=== PATIENT | female | born 1955 | race Caucasian/White ===

== ENCOUNTER 2017-02-01 12:00 | Emergency (ER) | payer SELFPAY ==
--- OUTSIDE RECORDS SUMMARY | 2017-02-01 13:14 | XMS REPORT | Continuity of Care Document ---
:1955 Author Organization [facility] ([facility]) Address [address] [place] [address] Phone [phone] Care Team Providers Name Role Phone Unavailable Primary Care Provider Unavailable Source Comments This disclosure is being made pursuant to the Care Everywhere program, applicable federal and state laws, and may not contain all informaitonavailable regarding this patient.[facility] ([facility]) Active Allergies and Adverse Reactions Not on File Current Medications Not on file Active Problems Not on file Social History Tobacco Use Types Packs/Day Years Used Date Never Assessed Plan of Care Health Maintenance Due Date Last Done Comments HCV Screening 1955 Hepatitis B Vaccine (1 of 3 - Primary Series) 1955 Tdap Vaccine 1964 Lipid Disorder Screening 1971 Td Vaccine 1971 Mammogram 1993 Cervical Cancer Screening 07/11/2001 07/11/1998 Colonoscopy 2003 Zoster Vaccine 2013 Influenza Vaccine: Seasonal (#1) 05/21/2016 Results from Last 3 Months Not on file
--- NOTE | 2017-02-01 13:27 | ERNOTE ---
Date of Service: 02/01/17 Time Seen by Provider: 02/01/17 13:03 Stated Complaint: SINUS INFECTIONS Presenting Symptoms:: other - URI Source: patient, RN notes reviewed Exam Limitations: no limitations Immunizations: IMMUNIZATION HX Immunizations Up to Date Yes History of Influenza Vaccine Yes Hx Pneumococcal Vaccination Yes Allergies/Adverse Reactions: Allergies No Known Allergies Allergy (Verified 08/20/16 02:42) Home Medications: HOME MEDICATIONS Amlodipine Besylate [Norvasc] 5 mg PO DAILY 09/12/13 [Last Taken Unknown] Omeprazole [Prilosec] 20 mg PO DAILY 09/12/13 [Last Taken Unknown] Amoxicillin 875 mg PO BID #20 tablet 02/01/17 [Last Taken Unknown] Bupropion HCl [Zyban] 150 mg PO BID 02/01/17 [Last Taken Unknown] Levothyroxine Sodium [Levo-T] 25 mcg PO DAILY 02/01/17 [Last Taken Unknown] - History of Present Ilness Narrative: 61 y/o female ambulatory to the ED for URI symptoms that began 2 days ago. She has been taking a sinus decongestant. She complains of left ear pain and fullness. She has been using a previously prescribed antibiotic ear drop without improvement. Frequency/Possible Cause: Reports: unknown cause Associated Symptoms: Reports: cough, nasal congestion, nasal drainage, lightheadedness, earache, headache, sore throat. Denies: chest pain/soreness, shortness of breath, wheezing, facial pain, dizziness, muscle aches Prior Treatment: Denies: recently seen Review of Systems - Review of Systems Constitutional: Present: See HPI EYE: Absent: eye discharge, tearing ENT: Present: ear pain, nose congestion, nasal drainage, sore throat. Absent: ear discharge Respiratory: Present: cough. Absent: shortness of breath, wheezing Cardiology: Absent: chest pain, edema Gastrointestinal/Abdominal: Absent: nausea, vomiting, abdominal pain Genitourinary: Present: no symptoms reported Musculoskeletal: Absent: muscle pain, neck pain Skin: Absent: rash, lesions Neurological: Present: headache, dizziness/light-headedness. Absent: weakness, numbness, tingling Endocrine: Present: no symptoms reported Hematologic/Lymphatic: Present: no symptoms reported Psych: Present: no symptoms reported - Patient's Past Medical History Patient History - Medical: Depression, GERD, Hypothyroidism Patient History - Cardiac/Respiratory: Hypertension Patient History - Cancer: No Hx of Cancer Patient History - Surgical Procedures: Cholecystectomy, Tubal Ligation Patient History - Other: None LMP (females 10-50): Menopausal - Social History Living Situations: spouse Abuse History: No History of abuse Psych History: Hx of Depression Smoking Status: Never smoker Alcohol Use: none Drug Use: none - Immunizations Immunizations Up to Date: Yes Hx Pneumococcal Vaccination: Yes History of Influenza Vaccine: Yes Physical Exam - Physical Exam General Appearance: Present: wd/wn, alert, no apparent distress, obese, other - disheveled, smells strongly of cat urine Eye Exam: Normal inspection: bilateral Ears, Nose, Throat: Present: abnormal TM (L), nasal congestion, sinus pain/ drainage, pharyngeal erythema. Absent: abnormal TM (R), pharyngeal swelling Neck: Present: normal inspection, nontender, supple, full range of motion Respiratory: Present: no respiratory distress, no accessory muscle use, lungs clear, wheezing - mild Cardiovascular/Chest: Present: regular rate, rhythm, no murmur Neurological Exam: Present: alert, oriented, normal mood/affect Skin Exam: Present: normal color, warm/dry ED Progress - Results and Orders Patient's Lab Results:: I have reviewed the patient's lab results. - Vital Signs Patient's Vital Signs:: I have reviewed the patient's vital signs. Vital Signs: Vital Signs 02/01/17 12:06 Temperature 37.2 C Pulse Rate 98 Respiratory 16 Rate Blood Pressure 163/89 O2 Sat by Pulse 96 Oximetry - Progress/Reassessment Chief Complaint: Upper Respiratory Symptoms Progress:: Unchanged Departure - Departure Clinical Impression: Upper respiratory infection, acute Otitis media Qualifiers: Otitis media type: suppurative Laterality: right Chronicity: acute Recurrence: not specified as recurrent Spontaneous tympanic membrane rupture: without spontaneous rupture Qualified Code(s): H66.001 - Acute suppurative otitis media without spontaneous rupture of ear drum, right ear Disposition: Home self-care Condition: Good Instructions: Otitis Media, Adult, [id number], Upper Respiratory Infection, Adult, [id number] Referrals: Celina Dodd FNP [Primary Care Provider] - Prescriptions: Amoxicillin 875 mg PO BID #20 tablet
[2017-02-01 13:37] VITALS: BP 150/73
== END 2017-02-01 13:40 | disposition home or self-care (01) ==
LOC: ER 12:00
DX: J06.9 Acute upper respiratory infection, unspecified (principal); H66.001 Acute suppurative otitis media without spontaneous rupture of ear drum, right ear; K21.9 Gastro-esophageal reflux disease without esophagitis; E03.9 Hypothyroidism, unspecified; I10 Essential (primary) hypertension